=== PATIENT | female | born 1995 | race Caucasian/White ===

== ENCOUNTER → 2019-10-08 18:12 | Observation (INO) ==
[~2019-10-08 18:12] MED LIST: Ringers Solution, Lactated 1,000 ML IVC ONE; Ringers Solution, Lactated 1,000 ML ONE
== END | disposition home or self-care (01) ==
LOC: 1NENULAB
PROVIDERS: ADMIT Advanced Practice Midwife; ATTEND Advanced Practice Midwife

== ENCOUNTER 2019-10-19 12:13 | Observation (INO) ==
[2019-10-19 13:05] LABS: Basophils % 0.1 %; Eosinophils % 0.4 %; Hematocrit 38.8 % (35.3-44.9); Hemoglobin 13.1 g/dL (11.5-15.4); Immature Granulocytes % 0.2 % (0-4); Lymphocytes # 1.8 K/mcL (0.6-4.6); Mean Corpuscular HGB Conc 33.8 g/dL (31.6-35.5); Mean Corpuscular Hemoglobin 30.8 pg (28.0-33.3); Mean Corpuscular Volume 91.1 fL (83.0-100.0); Mean Platelet Volume 10.4 fL (9.4-12.4); Monocytes # 0.5 K/mcL (0.0-1.3); Monocytes % 5.4 %; Neutrophils # 7.1 K/mcL (1.6-8.9); Platelet Count 258 K/mcL (140-400); Red Blood Count 4.26 M/mcL (3.82-4.97); Red Cell Distribution Width 13.2 % (11.5-14.5); Segmented Neutrophils % 74.9 %; White Blood Count 9.5 K/mcL (4.3-11.1)
[2019-10-19 13:10] LABS: Protein/Creatinine Ratio,Urine 0.26 mg/mg (0.00-0.20)
[2019-10-19 13:24] LABS: Alanine Aminotransferase 8 Units/L (7-52); Aspartate Amino Transferase 10 Units/L (13-39); BUN/Creatinine Ratio 16 (6-26); Blood Urea Nitrogen 8 mg/dL (6-20); Lactate Dehydrogenase 98 Units/L (140-271); Uric Acid 4.6 mg/dL (2.3-7.6); eGFR For African Americans > 60 (> 60); eGFR For Non-African Americans > 60 (> 60)
[2019-10-19] MEDS ORDERED: Ondansetron ODT 4 MG TAB.RAPDIS SL ONE (13:46)
[2019-10-19] MEDS ORDERED: *HR* Promethazine 25 MG/ML VIAL IVP PRN (14:27)
== END 2019-10-19 15:23 | disposition home or self-care (01) ==
LOC: 1NENULAB
PROVIDERS: ADMIT Advanced Practice Midwife; ATTEND Advanced Practice Midwife

== ENCOUNTER 2019-10-27 21:57 | Inpatient (IN) ==
[2019-10-27] MEDS ORDERED: Azithromycin 500 MG in 0.9 % Sodium Chloride 250 ML IVPB ONE (22:57)
[2019-10-27] MEDS ORDERED: Naloxone 0.4 MG/ML INJ IVP PRN (22:57)
[2019-10-27] MEDS ORDERED: Lidocaine 1% 20 ML MDV INFILT PRN (22:57)
[2019-10-27] MEDS ORDERED: *HR* FentaNYL (PF) 100 MCG/2 ML VIAL IVP PRN (22:57)
[2019-10-27] MEDS ORDERED: Metoclopramide 10 MG/2 ML VIAL IVP PRN (22:57)
[2019-10-27] MEDS ORDERED: Famotidine 20 MG/2 ML VIAL IVP PRN (22:57)
[2019-10-27 23:29] LABS: Basophils % 0.1 %; Eosinophils % 0.1 %; Hematocrit 38.1 % (35.3-44.9); Hemoglobin 12.9 g/dL (11.5-15.4); Immature Granulocytes % 0.4 % (0-4); Lymphocytes % 17.3 %; Mean Corpuscular HGB Conc 33.9 g/dL (31.6-35.5); Mean Corpuscular Hemoglobin 30.8 pg (28.0-33.3); Mean Corpuscular Volume 90.9 fL (83.0-100.0); Mean Platelet Volume 10.6 fL (9.4-12.4); Monocytes # 0.4 K/mcL (0.0-1.3); Monocytes % 3.9 %; Neutrophils # 8.8 K/mcL (1.6-8.9); Platelet Count 262 K/mcL (140-400); Red Blood Count 4.19 M/mcL (3.82-4.97); Red Cell Distribution Width 13.1 % (11.5-14.5); Segmented Neutrophils % 78.2 %; White Blood Count 11.3 K/mcL (4.3-11.1)
[2019-10-27 23:39] LABS: Amphetamine Screen,Urine Negative ng/mL (Cutoff=1000); Barbiturate Screen,Urine Negative ng/mL (Cutoff=200); Benzodiazepines Screen,Urine Negative ng/mL (Cutoff=200); Cannabinoid Screen,Urine Negative ng/mL (Cutoff = 50); Opiate Screen,Urine Negative ng/mL (Cutoff=300); Phencyclidine Screen,Urine Negative ng/mL (Cutoff=25)
[2019-10-28 00:59] LABS: Cocaine Screen,Urine Negative ng/mL (Cutoff= 300)
[2019-10-28] MEDS: Ringers Solution, Lactated 1,000 ML IVC SCH ×4 (01:00→07:34)
[2019-10-28] MEDS ORDERED: Ropivacaine/PF 0.2% 20 ML VIAL EP ONE (01:43)
[2019-10-28] MEDS ORDERED: *HR* FentaNYL (PF) 100 MCG/2 ML VIAL EP ONE (01:43)
[2019-10-28] MEDS ORDERED: EPHEDrine 50 MG/ML VIAL IVP PRN (01:43)
[2019-10-28] MEDS ORDERED: Epidural Premix (fent/bupiv) 110 ML EP SCH (01:45)
[2019-10-28] MEDS ORDERED: Ropivacaine/PF 0.2% 20 ML VIAL ONE (01:50)
[2019-10-28] MEDS ORDERED: *HR* FentaNYL (PF) 100 MCG/2 ML VIAL ONE ×2 (01:50→13:03)
[2019-10-28 03:58] LABS: Basophils % 0.1 %; Eosinophils % 0.1 %; Hemoglobin 12.8 g/dL (11.5-15.4); Immature Granulocytes % 0.5 % (0-4); Lymphocytes # 1.9 K/mcL (0.6-4.6); Lymphocytes % 17.3 %; Mean Corpuscular HGB Conc 32.8 g/dL (31.6-35.5); Mean Corpuscular Hemoglobin 29.9 pg (28.0-33.3); Mean Corpuscular Volume 91.1 fL (83.0-100.0); Monocytes # 0.4 K/mcL (0.0-1.3); Monocytes % 3.5 %; Neutrophils # 8.7 K/mcL (1.6-8.9); Platelet Count 283 K/mcL (140-400); Red Blood Count 4.28 M/mcL (3.82-4.97); Red Cell Distribution Width 13.2 % (11.5-14.5); Segmented Neutrophils % 78.5 %; White Blood Count 11.1 K/mcL (4.3-11.1)
[2019-10-28 04:06] LABS: Protein/Creatinine Ratio,Urine 0.19 mg/mg (0.00-0.20)
[2019-10-28 04:09] LABS: Alanine Aminotransferase 10 Units/L (7-52); Aspartate Amino Transferase 13 Units/L (13-39); BUN/Creatinine Ratio 14 (6-26); Blood Urea Nitrogen 9 mg/dL (6-20); Lactate Dehydrogenase 157 Units/L (140-271); Uric Acid 4.8 mg/dL (2.3-7.6); eGFR For African Americans > 60 (> 60); eGFR For Non-African Americans > 60 (> 60)
[2019-10-28] MEDS ORDERED: Ondansetron 4 MG/2 ML VIAL IVP PRN (10:34)
[2019-10-28 12:47] LABS: Bacteria,Urine Few per hpf (None-Few); Bilirubin,Urine Negative (Negative); Blood,Urine Moderate (Negative); Clarity,Urine Turbid (Clear); Color,Urine Light-Orange (Yellow); Glucose,Urine (UA) Normal (Normal); Ketones,Urine 40 mg/dL (Negative); Leukocyte Esterase,Urine Negative (Negative); Mucus,Urine Few per lpf (None-Few); Nitrite,Urine Negative (Negative); Protein,Urine >=300 mg/dL (Neg-Trace); RBC,Urine TNTC per hpf (0-3); Specific Gravity,Urine 1.028 (1.010-1.025); Urobilinogen,Urine Normal (Normal)
[2019-10-28] MEDS ORDERED: Oxytocin 20 units/ LR 1000 mL 20 UNIT/1,000 ML BAG IVC ONE (14:59)
[2019-10-28] MEDS ORDERED: Ibuprofen 600 MG TABLET PO PRN (18:34)
[2019-10-28] MEDS ORDERED: Benzocaine/Menthol 56 GM AEROSOL SPRAY TP PRN (18:34)
[2019-10-28] MEDS ORDERED: Oxytocin 20 units/ LR 1000 mL 20 UNIT/1,000 ML BAG IVC SCH (18:34)
[2019-10-28] MEDS ORDERED: Acetaminophen 325 MG TABLET PO PRN (18:34)
[2019-10-28] MEDS ORDERED: Measles/Mumps/Rubella Vacc 0.5 ML VIAL SQ PRN (18:34)
[2019-10-29] MEDS ORDERED: Prenatal Vit/FA 1 EACH TABLET PO SCH (09:00)
[2019-10-29 09:45] VITALS: BP 113/77
== END 2019-10-29 14:28 | disposition home or self-care (01) | DRG 560 ==
LOC: 1NENULAB 21:57 → 1NENUOBS 10-28 18:14
PROVIDERS: ADMIT Registered Nurse; ATTEND Registered Nurse

== ENCOUNTER 2020-09-25 05:10 | Inpatient (IN) ==
[2020-09-25] MEDS ORDERED: Naloxone 0.4 MG/ML INJ IVP PRN (05:13)
[2020-09-25] MEDS ORDERED: Ondansetron 4 MG/2 ML VIAL IVP PRN (05:13)
[2020-09-25] MEDS ORDERED: Metoclopramide 10 MG/2 ML VIAL IVP PRN (05:13)
[2020-09-25] MEDS ORDERED: Famotidine 20 MG/2 ML VIAL IVP PRN (05:13)
[2020-09-25] MEDS ORDERED: *HR* Nalbuphine 10 MG/ML AMPUL IV PRN (05:13)
[2020-09-25] MEDS ORDERED: Lidocaine 1% 20 ML MDV INFILT PRN (05:13)
[2020-09-25] MEDS ORDERED: Penicillin G Potassium 5,000,000 UNIT in 0.9 % Sodium Chloride Mini Bag 100 ML IVPB ONE (05:14)
[2020-09-25] MEDS ORDERED: Ringers Solution, Lactated 1,000 ML IVC SCH (05:15)
[2020-09-25] MEDS ORDERED: EPHEDrine 50 MG/ML VIAL IVP PRN (06:16)
[2020-09-25 06:17] LABS: Basophils % 0.1 %; Eosinophils % 0.3 %; Hematocrit 38.3 % (35.3-44.9); Hemoglobin 13.2 g/dL (11.5-15.4); Immature Granulocytes % 0.3 % (0-4); Lymphocytes # 2.7 K/mcL (0.6-4.6); Lymphocytes % 23.4 %; Mean Corpuscular HGB Conc 34.5 g/dL (31.6-35.5); Mean Corpuscular Hemoglobin 30.8 pg (28.0-33.3); Mean Corpuscular Volume 89.5 fL (83.0-100.0); Mean Platelet Volume 10.2 fL (9.4-12.4); Monocytes # 0.7 K/mcL (0.0-1.3); Monocytes % 5.7 %; Neutrophils # 8.1 K/mcL (1.6-8.9); Platelet Count 244 K/mcL (140-400); Red Blood Count 4.28 M/mcL (3.82-4.97); Segmented Neutrophils % 70.2 %; White Blood Count 11.6 K/mcL (4.3-11.1)
[2020-09-25] MEDS ORDERED: Epidural Premix (fent/bupiv) 110 ML EP ONE (06:25)
[2020-09-25] MEDS ORDERED: Epidural Premix (fent/bupiv) 110 ML EP SCH (06:30)
[2020-09-25] MEDS ORDERED: Oxytocin 20 units/ LR 1000 mL 20 UNIT/1,000 ML BAG IVC SCH ×2 (08:15→16:57)
[2020-09-25] MEDS: Penicillin G Potassium 2,500,000 UNIT/105 ML MLS IVPB SCH ×2 (10:00→14:06)
[2020-09-25 11:28] LABS: Amphetamine Screen,Urine Negative ng/mL (Cutoff=1000); Barbiturate Screen,Urine Negative ng/mL (Cutoff=200); Benzodiazepines Screen,Urine Negative ng/mL (Cutoff=200); Cannabinoid Screen,Urine Negative ng/mL (Cutoff = 50); Cocaine Screen,Urine Negative ng/mL (Cutoff= 300); Opiate Screen,Urine Negative ng/mL (Cutoff=300); Phencyclidine Screen,Urine Negative ng/mL (Cutoff=25)
[2020-09-25] MEDS ORDERED: Acetaminophen 325 MG TABLET PO ONE (13:21)
[2020-09-25] MEDS ORDERED: Measles/Mumps/Rubella Vacc 0.5 ML VIAL SQ PRN (16:57)
[2020-09-25] MEDS ORDERED: Benzocaine/Menthol 56 GM AEROSOL SPRAY TP PRN (16:57)
[2020-09-25] MEDS ORDERED: Acetaminophen 325 MG TABLET PO PRN (16:57)
[2020-09-25] MEDS ORDERED: Oxytocin 20 units/ LR 1000 mL 20 UNIT/1,000 ML BAG IVC ONE (16:57)
[2020-09-25] MEDS: Ibuprofen 600 MG TABLET PO PRN (20:19)
[2020-09-26 08:19] VITALS: BP 110/67
[2020-09-26] MEDS: Ibuprofen 600 MG TABLET PO PRN (08:40)
[2020-09-26] MEDS ORDERED: Prenatal Vit/FA 1 EACH TABLET PO SCH (09:00)
== END 2020-09-26 12:00 | disposition home or self-care (01) | DRG 560 ==
LOC: 1NENULAB 05:10 → 1NENUOBS 17:55
PROVIDERS: ADMIT Advanced Practice Midwife; ATTEND Advanced Practice Midwife